=== PATIENT | female | born 1975 | race Caucasian/White ===

== ENCOUNTER 2016-04-13 13:06 | Emergency (ER) | payer BC ==
[2016-04-13 13:44] VITALS: BP 112/78
--- NOTE | 2016-04-13 13:55 | UC ---
Respiratory Complaint HPI - HPI Summary HPI Summary: patient has had increased cough, fever, sore throat for the past week. - History of Current Complaint Chief Complaint: UCRespiratory Stated Complaint: RESPIRATORY COMPLAINT Time Seen by Provider: 04/13/16 13:45 Hx Obtained From: Patient Hx Last Menstrual Period: 04/12/16 ?: No Onset/Duration: Sudden Onset, Lasting Days Timing: Constant Severity Initially: Mild Severity Currently: Moderate Pain Intensity: 6 Pain Scale Used: 0-10 Numeric Character: Cough: Nonproductive Aggravating Factors: Deep Breaths, Recumbent Position Alleviating Factors: Nothing Associated Signs And Symptoms: Positive: Fever, Wheezing, URI, Sinus Discomfort - Risk Factors Pulmonary Embolism Risk Factors: Negative Cardiac Risk Factors: Negative Pseudomonas Risk Factors: Negative Tuberculosis Risk Factors: Negative - Allergies/Home Medications Allergies/Adverse Reactions: Allergies Allergy/AdvReac Type Severity Reaction Status Date / Time No Known Allergies Allergy Verified 04/13/16 13:39 Home Medications: Home Medications Amoxicillin SUSP* 480 mg PO ONCE 04/13/16 [History Confirmed 04/13/16] Loratadine [Loratadine Childrens] 5 mg PO ONCE 04/13/16 [History Confirmed 04/13] PMH/Surg Hx/FS Hx/Imm Hx Previously Healthy: Yes Endocrine History Of: Denies: Thyroid Disease Cardiovascular History Of: Denies: Cardiac Disorders - Surgical History Surgical History: None - Family History Known Family History: Positive: Hypertension Negative: Cardiac Disease, Diabetes - Social History Alcohol Use: Rare Substance Use Type: None Smoking Status (MU): Never Smoked Tobacco - Immunization History Most Recent Influenza Vaccination: Not the Season Review of Systems Constitutional: Fever Skin: Negative Eyes: Negative ENT: Sore Throat, Ear Ache, Nasal Discharge Respiratory: Shortness Of Breath, Cough Cardiovascular: Negative Gastrointestinal: Negative Genitourinary: Negative Motor: Negative Neurovascular: Negative Musculoskeletal: Myalgia Neurological: Headache Psychological: Negative All Other Systems Reviewed And Are Negative: Yes Physical Exam Triage Information Reviewed: Yes Appearance: Well-Nourished, Ill-Appearing, Pain Distress Vital Signs: Initial Vital Signs Temp 99.8 F 04/13/16 13:37 Pulse 108 04/13/16 13:37 Resp 16 04/13/16 13:37 BP 112/78 04/13/16 13:37 Pulse Ox 100 04/13/16 13:37 Vital Signs Reviewed: Yes Eye Exam: Normal Eyes: Positive: Conjunctiva Inflamed ENT: Positive: Pharyngeal erythema, Nasal congestion, TMs normal, Tonsillar swelling, Tonsillar exudate Dental Exam: Normal Neck exam: Normal Neck: Positive: Supple, Nontender, No Lymphadenopathy Respiratory Exam: Normal Respiratory: Positive: Normal breath sounds, No respiratory distress, No accessory muscle use, Wheezing, Inspiration Cardiovascular Exam: Normal Cardiovascular: Positive: RRR, No Murmur, Pulses Normal Abdominal Exam: Normal Abdomen Description: Positive: Nontender, No Organomegaly, Soft Bowel Sounds: Positive: Present Musculoskeletal Exam: Normal Musculoskeletal: Positive: Strength Intact, ROM Intact, No Edema Neurological Exam: Normal Neurological: Positive: Alert, Muscle Tone Normal Psychological Exam: Normal Skin Exam: Normal UC Diagnostic Evaluation - Laboratory O2 Sat by Pulse Oximetry: 100 Respiratory Course/Dx - Course Course Of Treatment: history obtained, medications reviewed, exam performed, medication prescribed for bronchitis. - Differential Dx/Diagnosis Differential Diagnosis/HQI/PQRI: Asthma, Bronchitis, Influenza, Laryngitis, Lower Resp Infection, Sinusitis, Tuberculosis Provider Diagnoses: bronchitis. fever. myalgia Discharge - Discharge Plan Condition: Stable Disposition: HOME Patient Education Materials: Acute Bronchitis (ED) Additional Instructions: Take the medication as prescribed. Increase your fluid intake. Tylenol and ibuprofen as needed for pain and fever. get plenty of rest.
== END 2016-04-13 14:06 | disposition home or self-care (01) ==
LOC: UCCORT 13:06
DX: J40 Bronchitis, not specified as acute or chronic (principal); R50.9 Fever, unspecified; M79.1 Myalgia
CPT/HCPCS: 99212; G0463

== ENCOUNTER 2016-08-29 10:50 | Emergency (ER) | payer BC ==
[2016-08-29 13:18] VITALS: BP 112/78
--- NOTE | 2016-08-29 13:24 | UC ---
Throat Pain/Nasal Chase HPI - HPI Summary HPI Summary: pt presents with c/o nasal congestion, sinus pressure, sore throat, dry cough X 1 week. - History of Current Complaint Chief Complaint: UCGeneralIllness Stated Complaint: CONGESTION/COUGH/ACHEY Time Seen by Provider: 08/29/16 13:01 Hx Obtained From: Patient Hx Last Menstrual Period: 08/11/16 ?: No Onset/Duration: Gradual Onset, Lasting Days - 7 Severity: Moderate Cough: Nonproductive Associated Signs & Symptoms: Positive: Dysphagia, Sinus Discomfort Related History: Seasonal Allergies - Allergies/Home Medications Allergies/Adverse Reactions: Allergies Allergy/AdvReac Type Severity Reaction Status Date / Time No Known Allergies Allergy Verified 08/29/16 13:09 Home Medications: Home Medications Diphenhydramine HCl [Benadryl Allergy Child 12.5 MG/5 ML LIQ] 10 ml PO BEDTIME PRN 08/29/16 [History Confirmed 08/29/16] PMH/Surg Hx/FS Hx/Imm Hx Previously Healthy: Yes - Surgical History Surgical History: None - Family History Known Family History: Positive: Hypertension Negative: Cardiac Disease, Diabetes - Social History Alcohol Use: Rare Substance Use Type: None Smoking Status (MU): Never Smoked Tobacco - Immunization History Most Recent Influenza Vaccination: Not the Season Review of Systems Constitutional: Fatigue Skin: Negative Eyes: Negative ENT: Sore Throat, Other - nasal congestion sinus pressure, MCGRAW Respiratory: Cough Cardiovascular: Negative Gastrointestinal: Negative Genitourinary: Negative Motor: Negative Neurovascular: Negative Musculoskeletal: Negative Neurological: Headache Psychological: Negative All Other Systems Reviewed And Are Negative: Yes Physical Exam Triage Information Reviewed: Yes Appearance: Ill-Appearing Vital Signs: Initial Vital Signs Temp 97.7 F 08/29/16 13:14 Pulse 83 08/29/16 13:14 Resp 16 08/29/16 13:14 BP 112/78 08/29/16 13:14 Pulse Ox 96 08/29/16 13:14 Vital Signs Reviewed: Yes Eye Exam: Normal ENT Exam: Other ENT: Positive: Nasal congestion, Other: - PND, maxillary sinus tenderness Neck exam: Normal Respiratory Exam: Normal Cardiovascular Exam: Normal Musculoskeletal Exam: Normal Neurological Exam: Normal Psychological Exam: Normal Skin Exam: Normal Throat Pain/Nasal Course/Dx - Differential Dx/Diagnosis Differential Diagnosis/HQI/PQRI: Sinusitis, URI Provider Diagnoses: sinusitis. allergic rhinitis Discharge - Discharge Plan Condition: Stable Disposition: HOME Prescriptions: Amoxicillin (*) [Amoxicillin 875 MG (*)] 875 mg PO BID #14 tab Fexofenadine-Pseudoephedrine [Yelena-D 24 Hour Allergy] 1 tab PO DAILY #14 tab Fluticasone NASAL SPRAY 50MCG* [Flonase NASAL SPRAY 50MCG*] 2 spray BOTH NARES DAILY #1 btl Patient Education Materials: Sinusitis (ED), Allergic Rhinitis (ED) Referrals: Ochoa Beal MD [Medical Doctor] - If Needed Rehan Mayer MD [Primary Care Provider] -
== END 2016-08-29 13:35 | disposition home or self-care (01) ==
LOC: UCCORT 10:50
DX: J32.9 Chronic sinusitis, unspecified (principal); J30.9 Allergic rhinitis, unspecified
CPT/HCPCS: 99212; G0463

== ENCOUNTER 2017-05-05 09:09 | Emergency (ER) | payer BC ==
[2017-05-05 10:44] VITALS: BP 107/71
--- NOTE | 2017-05-05 11:13 | UC ---
UC General HPI - HPI Summary HPI Summary: 42 yo lady c/o uri, congestion last several days. Household family members with similar symptoms recently. Also c/o lesion L ant lat chest wall, discomfort in L axilla, some discomfort extending to mid back. No fever / chills. Mild cough, clear runny nose. Has not taken antihist. No sob / cp. 22 weeks , no report vag bleeding. - History of Current Complaint Chief Complaint: UCRespiratory Stated Complaint: SKIN/SINUS COMPLAINT,ST Time Seen by Provider: 05/05/17 10:38 Hx Obtained From: Patient Hx Last Menstrual Period: early Nov 2016 Pain Intensity: 2 - Allergy/Home Medications Allergies/Adverse Reactions: Allergies Allergy/AdvReac Type Severity Reaction Status Date / Time environmental Allergy Congestion Uncoded 05/05/17 10:33 Home Medications: Home Medications Pnv No.103/Folic/Om3s/Fish Oil [ Gummies/Dha & Fo 0.4-32.5 mg] 2 chw PO DAILY 05/05/17 [History Confirmed 05/05/17] PMH/Surg Hx/FS Hx/Imm Hx Previously Healthy: Yes - Surgical History Surgical History: Yes Surgery Procedure, Year, and Place: d and c - Family History Known Family History: Positive: Hypertension Negative: Cardiac Disease, Diabetes - Social History Alcohol Use: None Substance Use Type: None Smoking Status (MU): Never Smoked Tobacco - Immunization History Most Recent Influenza Vaccination: Not the Season Review of Systems Constitutional: Fatigue Skin: Negative Eyes: Negative ENT: Nasal Discharge, Sinus Congestion Respiratory: Negative Cardiovascular: Negative Gastrointestinal: Negative Genitourinary: Negative Motor: Negative Neurovascular: Negative Musculoskeletal: Negative - see hpi Neurological: Negative Psychological: Negative Is Patient Immunocompromised?: No All Other Systems Reviewed And Are Negative: Yes Physical Exam Triage Information Reviewed: Yes Appearance: Well-Appearing, Well-Nourished Vital Signs: Initial Vital Signs Temp 98.6 F 05/05/17 10:36 Pulse 86 05/05/17 10:36 Resp 16 05/05/17 10:36 BP 107/71 05/05/17 10:36 Pulse Ox 100 05/05/17 10:36 Vital Signs Reviewed: Yes Eye Exam: Normal ENT: Positive: Pharyngeal erythema - mild post phar redness, no sores, uvula midline., TM dull - dull TM au Neck exam: Normal Neck: Positive: Supple, Nontender, No Lymphadenopathy Respiratory Exam: Normal Respiratory: Positive: Chest non-tender, Lungs clear, Normal breath sounds, No respiratory distress, No accessory muscle use Cardiovascular Exam: Normal Cardiovascular: Positive: RRR, No Murmur, Pulses Normal, Brisk Capillary Refill Musculoskeletal Exam: Normal - moves all 4 ext's, gait steady Neurological Exam: Normal - grossly nonfocal Psychological Exam: Normal - conversing easily and appropriately Skin Exam: Normal - nondiaphoretic. L ant lat chest wall with redness, raised, ++tender rash lesion, somewhat irregular. Nonfluctuant. Measures appox 2.5cm x approx 3.5cm. L axilla - tender, no skin discoloration, suspect reactive lymph node. Back mild diffuse upper L netbackup administrator. No cvat perse. Course/Dx - Course Course Of Treatment: Influenza a/b neg. S/sx concerning although not def shingles. Had chicken pox as a child. Will check labs (see order). Rx valtrex. Consider antihistamine, d/w pt. Questions as posed answered to the best of my ability. Encourage f/u physician, has appt scheduled in 1-2 weeks. Will seek medical attention for worse or new problems. - Differential Dx - Multi-Symptom Provider Diagnoses: rhinosinusitis. Rash left ant-lat chest wall, consider shingles Discharge - Discharge Plan Condition: Stable Disposition: HOME Prescriptions: ValACYclovir (*) [Valtrex 1 GM(*)] 1 gm PO TID #30 tab Patient Education Materials: Shingles (ED), Rhinosinusitis (ED) Referrals: Elise Alexandre NP [Primary Care Provider] - Additional Instructions: Influenza A/B negative. Rash and irriitation - concerning (although not definite) for shingles. Blood work today. Follow up with your doctor, in the next 1-2 weeks, for recheck. Seek medical attention for worse or new problems in the meantime.
[2017-05-05 18:11] LABS: ABS Basophils 0 10^3/ul (0-0.2); ABS Eosinophils 0.1 10^3/ul (0-0.6); ABS Lymphocytes 2.1 10^3/ul (1.0-4.8); ABS Monocytes 0.7 10^3/ul (0-0.8); ABS Neutrophils 6.7 10^3/ul (1.5-7.7); ABS Nucleated RBC 0 10^3/ul; Eosinophil % 1.5 % (0-6); Hematocrit 36 % (35-47); Hemoglobin 12.1 g/dl (12.0-16.0); Mean Corpuscular HGB Conc 34 g/dl (31-36); Mean Corpuscular Hemoglobin 30 pg (27-31); Mean Corpuscular Volume 89 fL (80-97); Mean Platelet Volume 8 um3 (7.4-10.4); Nucleated Red Blood Cells % 0; Platelet Count 220 10^3/ul (150-450); Red Blood Count 4.04 10^6/ul (4.0-5.4); Red Cell Distribution Width 14 % (10.5-15); White Blood Count 9.7 10^3/ul (3.5-10.8)
[2017-05-05 18:22] LABS: EGFR Non-African American 127.8 (>60)
--- NOTE | 2017-05-06 08:16 | UC ---
- Progress Note Progress Note: BMP, CBC nml. ESR slightly high at 24 CRP SLIGHTLY HIGH AT 5.06 (NML UP TO 5.0) Flu neg. Lyme is pending. Dx'd w/ rhinosinusitis. Await lyme results, will need to f/u with pcp for follow up on elevated test results. they can be elevated due to infection/inflammation.
== END 2017-05-05 12:16 | disposition home or self-care (01) ==
LOC: UCCORT 09:09
DX: O26.892 Other specified pregnancy related conditions, second trimester (principal); Z3A.22 22 weeks gestation of pregnancy; J32.9 Chronic sinusitis, unspecified; R21 Rash and other nonspecific skin eruption
CPT/HCPCS: 36415; 80048; 85025; 85652; 86140; 86618; 86787; 87502; 99212; G0463

== ENCOUNTER 2018-02-16 09:18 | Emergency (ER) | payer BC ==
[2018-02-16 10:26] VITALS: BP 114/85
--- NOTE | 2018-02-16 10:57 | UC ---
UC General HPI - HPI Summary HPI Summary: PT C/O A SORE THROAT THAT STARTED MONDAY BUT THEN RESOLVED. NOW HAS COUGH, NASAL CONGESTION AND LARYNGITIS. NO FEVER, SOB OR TROUBLE WITH SWALLOW - History of Current Complaint Chief Complaint: UCGeneralIllness Stated Complaint: ST Time Seen by Provider: 02/16/18 10:52 Hx Obtained From: Patient Hx Last Menstrual Period: 01/17/18 Onset/Duration: Gradual Onset Timing: Constant Pain Intensity: 0 Associated Signs & Symptoms: Negative: Fever, Headache, SOB - Allergy/Home Medications Allergies/Adverse Reactions: Allergies Allergy/AdvReac Type Severity Reaction Status Date / Time environmental Allergy Congestion Uncoded 02/16/18 10:26 Home Medications: Home Medications Multivitamin [Multivitamins] 1 cap PO DAILY 02/16/18 [History Confirmed 02/16/18 ] PMH/Surg Hx/FS Hx/Imm Hx Previously Healthy: Yes - Surgical History Surgical History: Yes Surgery Procedure, Year, and Place: d and c - Family History Known Family History: Positive: Hypertension Negative: Cardiac Disease, Diabetes - Social History Occupation: Employed Full-time Alcohol Use: None Substance Use Type: None Smoking Status (MU): Never Smoked Tobacco - Immunization History Most Recent Influenza Vaccination: Not the 2015/2016 Season Vaccination Up to Date: Yes Review of Systems All Other Systems Reviewed And Are Negative: Yes Constitutional: Positive: Negative Skin: Positive: Negative Eyes: Positive: Negative ENT: Positive: Nasal Discharge, Sinus Congestion Respiratory: Positive: Cough Cardiovascular: Positive: Negative Gastrointestinal: Positive: Negative Genitourinary: Positive: Negative Motor: Positive: Negative Neurovascular: Positive: Negative Musculoskeletal: Positive: Negative Neurological: Positive: Negative Psychological: Positive: Negative Physical Exam Triage Information Reviewed: Yes Appearance: Well-Appearing Vital Signs: Initial Vital Signs Temp 97.7 F 02/16/18 10:22 Pulse 85 02/16/18 10:22 Resp 15 02/16/18 10:22 BP 114/85 02/16/18 10:22 Pulse Ox 100 02/16/18 10:22 Vital Signs Reviewed: Yes Eyes: Positive: Conjunctiva Clear ENT: Positive: Pharynx normal, Nasal congestion, TMs normal, Hoarse voice, Uvula midline. Negative: Nasal drainage, Tonsillar swelling, Tonsillar exudate , Trismus, Muffled voice, Sinus tenderness Neck: Positive: Supple, Nontender, No Lymphadenopathy, Other: - NO STRIDOR Respiratory: Positive: Lungs clear, Normal breath sounds, No respiratory distress Cardiovascular: Positive: RRR, No Murmur Abdomen Description: Positive: Nontender, No Organomegaly, Soft Bowel Sounds: Positive: Present Musculoskeletal: Positive: ROM Intact Neurological: Positive: Alert Psychological: Positive: Age Appropriate Behavior Skin Exam: Normal Course/Dx - Course Course Of Treatment: NO CONCERN FOR SINUSITIS OR PERITONSILAR ABSCESS. - Differential Dx - Multi-Symptom Provider Diagnoses: URI, LARYNGITIS Discharge - Sign-Out/Discharge Documenting (check all that apply): Patient Departure All imaging exams completed and their final reports reviewed: No Studies - Discharge Plan Condition: Stable Disposition: HOME Prescriptions: predniSONE TAB* [Deltasone 20 MG TAB*] 40 mg PO DAILY 5 Days #10 tab Patient Education Materials: Laryngitis (ED), Upper Respiratory Infection (DC) Referrals: Elise Alexandre, [facility] [Primary Care Provider] - 7 Days - Billing Disposition and Condition Condition: STABLE Disposition: Home - Attestation Statements Provider Attestation: Per institutional requirements, I have reviewed the chart, however, I was not consulted specifically or made aware of this patient by the midlevel provider. I did not personally evaluate, interact with , or disposition this patient.
== END 2018-02-16 11:05 | disposition home or self-care (01) ==
LOC: UCCORT 09:18
DX: J06.9 Acute upper respiratory infection, unspecified (principal); J04.0 Acute laryngitis; Z91.09 Other allergy status, other than to drugs and biological substances
CPT/HCPCS: 99212; G0463

== ENCOUNTER 2018-09-15 10:25 | Emergency (ER) | payer BC ==
[2018-09-15 10:41] VITALS: BP 109/74
--- NOTE | 2018-09-15 10:45 | UC ---
Throat Pain/Nasal Chase HPI - HPI Summary HPI Summary: 43 y/o female presents to the urgent care c/o sore throat, dry cough nasal congestion w/ clear nasal discharge and MCGRAW for the past 3 days. She reports her was Dx w/ strep and URI about 2 days ago. 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 Pain w/ swallowing is 6/10 today. She has been taken OTC medications for allergies w/o any improvement of symptoms. Pt had low grade subjective fever last night. Pt denies dizziness, SOB, chest pain,abdominal pain , N/V/D. - History of Current Complaint Chief Complaint: UCGeneralIllness Stated Complaint: ST/MCGRAW/BODY ACHES Time Seen by Provider: 09/15/18 10:43 Hx Obtained From: Patient Hx Last Menstrual Period: 09/08/18 ?: No Onset/Duration: Gradual Onset, Lasting Days - 3 days, Worse Since - last night Severity: Moderate Pain Intensity: 6 Pain Scale Used: 0-10 Numeric Cough: Nonproductive Associated Signs & Symptoms: Positive: Sinus Discomfort, Nasal Discharge - clear , Fever - subjective last night. Negative: Wheezing, Hoarseness - Epiglottits Risk Factors Epiglottis Risk Factors: Negative - Allergies/Home Medications Allergies/Adverse Reactions: Allergies Allergy/AdvReac Type Severity Reaction Status Date / Time environmental Allergy Congestion Uncoded 02/16/18 10:26 PMH/Surg Hx/FS Hx/Imm Hx Previously Healthy: Yes - Pt denies PMHX - Surgical History Surgical History: Yes Surgery Procedure, Year, and Place: d and c - Family History Known Family History: Positive: Hypertension, Diabetes Negative: Cardiac Disease - Social History Occupation: Employed Full-time Lives: With Family Alcohol Use: Occasionally Substance Use Type: None Smoking Status (MU): Never Smoked Tobacco - Immunization History Most Recent Influenza Vaccination: Not the 2016/2016 Season Vaccination Up to Date: Yes Review of Systems All Other Systems Reviewed And Are Negative: Yes Constitutional: Positive: Fever - subjetive at home, Chills, Other - body aches Skin: Positive: Negative Eyes: Positive: Negative ENT: Positive: Sore Throat, Nasal Discharge - clear, Sinus Congestion Respiratory: Positive: Cough - dry Cardiovascular: Positive: Negative Gastrointestinal: Positive: Negative Genitourinary: Positive: Negative Motor: Positive: Negative Neurovascular: Positive: Negative Musculoskeletal: Positive: Negative Neurological: Positive: Headache Psychological: Positive: Negative Is Patient Immunocompromised?: No Physical Exam - Summary Physical Exam Summary: VITAL SIGNS: Reviewed. GENERAL: Patient is a well developed and nourished female who is sitting comfortable in the examining table. Patient is not in any acute respiratory distress. HEAD AND FACE: No signs of trauma. No ecchymosis, hematomas or skull depressions. No sinus tenderness. EYES: PERRLA, EOMI x 2, No injected conjunctiva, no nystagmus. No photophobia. EARS: Hearing grossly intact. Ear canals and tympanic membranes are within normal limits. MOUTH: Positive pharynx with erythema, exudates, palatal petechiae. B/L tonsillar enlargement with exudate. Uvula in midline. NECK: Supple, trachea is midline, Positive anterior cervical lymphadenopathy, no JVD, no carotid bruit, no c-spine tenderness, neck with full ROM. No meningeal signs, no Kernig's or brudzinskis signs. CHEST: Symmetric, no tenderness at palpation LUNGS: Clear to auscultation bilaterally. No wheezing or crackles. CVS: Regular rate and rhythm, S1 and S2 present, no murmurs or gallops appreciated. ABDOMEN: Soft, non-tender. No signs of distention. No rebound no guarding, and no masses palpated. Bowel sounds are normal. EXTREMITIES: FROM in all major joints, no edema, no cyanosis or clubbing. NEURO: Alert and oriented x 3. No acute neurological deficits. Speech is normal and follows commands. SKIN: Dry and warm Triage Information Reviewed: Yes Vital Signs: Initial Vital Signs Temp 97.7 F 09/15/18 10:36 Pulse 88 09/15/18 10:36 Resp 16 09/15/18 10:36 BP 109/74 09/15/18 10:36 Pulse Ox 99 09/15/18 10:36 Throat Pain/Nasal Course/Dx - Course Course Of Treatment: 43 y/o female presents to the urgent care c/o sore throat, dry cough nasal congestion w/ clear nasal discharge and MCGRAW for the past 3 days. She reports her was Dx w/ strep and URI about 2 days ago. 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 Pain w/ swallowing is 6/10 today. She has been taken OTC medications for allergies w/o any improvement of symptoms. Pt had low grade subjective fever last night. Pt denies dizziness, SOB, chest pain,abdominal pain , N/V/D. Hx obtained. Pt w/ pharyngitis and URI on examination. Rapid strep ordered: result: positive. Strep pharyngitis. Rx Amoxicillin PO as directed below advised to take Ibuprofen PO for pain and swelling. PT Advised on hand washing to avoid spreading. Also advised to rest, eat well and avoid strenuous exercise. If symptoms do not improve or worsen advised to return to the urgent care or f/u with her PCP for further evaluation and treatment. PT understood and agreed w/ plan of care - Differential Dx/Diagnosis Differential Diagnosis/HQI/PQRI: Laryngitis, Mononucleosis, Pharyngitis, Sinusitis, Tonsillitis Provider Diagnosis: Strep pharyngitis, Upper respiratory infection Discharge - Sign-Out/Discharge Documenting (check all that apply): Patient Departure - D/C home All imaging exams completed and their final reports reviewed: No Studies - Discharge Plan Condition: Stable Disposition: HOME Prescriptions: Amoxicillin PO (*) [Amoxicillin 500 MG CAP*] 500 mg PO Q12H #20 cap Patient Education Materials: Strep Throat (ED) Referrals: Elise Alexandre NP [Primary Care Provider] - 3 Days Additional Instructions: 1- Please take the full course of the antibiotic to avoid resistance.Take yogurts w/ probiotics or Culturelle to protect your GI system 2-Please take ibuprofen PO q6-8hrs prn as instructed after meals to alleviate pain and swelling. Increase fluid intake, eat well, rest and avoid strenuous exercise 3-If symptoms do not improve or worsen please return to the urgent care or f/u with your PCP for further evaluation and treatment. 4- Change your tooth brush. - Billing Disposition and Condition Condition: STABLE Disposition: Home - Attestation Statements Provider Attestation: Per institutional requirements, I have reviewed the chart, however, I was not consulted specifically or made aware of this patient by the midlevel provider. I did not personally evaluate, interact with , or disposition this patient.
== END 2018-09-15 11:05 | disposition home or self-care (01) ==
LOC: UCCORT 10:25
DX: J02.0 Streptococcal pharyngitis (principal); B95.0 Streptococcus, group A, as the cause of diseases classified elsewhere; J06.9 Acute upper respiratory infection, unspecified
CPT/HCPCS: 87651; 99212; G0463